=== PATIENT | female | born 1990 | race Caucasian/White ===

== ENCOUNTER 2016-06-07 04:35 | Emergency (ER) | payer OTHER ==
[2016-06-07] MEDS ORDERED: IOPAMIDOL 300 (61%) 150 ML VIAL IV ONE (04:36)
[2016-06-07] MEDS ORDERED: MORPHINE SULFATE 4 MG/ML SYRINGE ONE ×2 (05:01→06:55)
[2016-06-07] MEDS ORDERED: ONDANSETRON 4 MG/2ML 2 ML VIAL ONE (05:01)
[2016-06-07 05:03] LABS: SPECIFIC GRAVITY 1.015 (1.001-1.030); URINE APPEARANCE HAZY; URINE BILIRUBIN NEGATIVE (NEGATIVE); URINE BLOOD 3+ (NEGATIVE); URINE COLOR LIGHT YELLOW; URINE GLUCOSE (UA) NEGATIVE (NEGATIVE); URINE LEUKOCYTE ESTERASE TRACE (NEGATIVE); URINE NITRITE NEGATIVE (NEGATIVE); URINE PROTEIN 1+ (NEGATIVE); URINE UROBILINOGEN NORMAL (0-1 mg/dl)
[2016-06-07 05:07] LABS: HCG,QUALITATIVE URINE NEGATIVE
[2016-06-07 05:12] LABS: URINE WBC 15-20 /hpf
[2016-06-07 05:13] LABS: URINE BACTERIA RARE
[2016-06-07] MEDS ORDERED: CEFTRIAXONE 1 GRAM DUPLEX 50 ML IV ONE (05:21)
[2016-06-07 05:25] LABS: ABSOLUTE NEUTROPHIL COUNT 9.6 K/mm3 (1.8-7.7); BASO # 0.1 K/mm3 (0.0-0.2); BASO % 0.6 % (0.2-1.0); EOS # 0.3 (0.0-0.5); EOS % 1.9 % (0.9-2.9); HEMATOCRIT 41.3 % (37.0-47.0); IMM NEUT # 0.1 K/mm3 (0-0.2); IMM NEUT% 0.4 % (0-1); LYMPH % 20.9 % (15-45); MEAN CORPUSCULAR HEMOGLOBIN 33.9 pg (27.0-31.0); MEAN CORPUSCULAR HGB CONC 33.9 g/dl (33.0-37.0); MEAN PLATELET VOLUME 9.3 fl (7.4-10.4); MONO # 1.3 (0.0-0.8); MONO % 9.2 % (4-12); PLATELET COUNT 282 K/mm3 (130-400); RED CELL DISTRIBUTION WIDTH 12.5 % (11.5-14.5)
[2016-06-07 05:40] LABS: ALB/GLOB RATIO 1.3 (>1.0); ALBUMIN 3.6 gm/dL (3.5-5.7); CALCIUM 9.3 mg/dL (8.6-10.3)
[2016-06-07] MEDS ORDERED: SODIUM CHLORIDE 0.9% 1,000 ML ONE (06:05)
--- NOTE | 2016-06-07 08:21 | US ---
RENAL LTD/AORTA/BLADDER, ABDOMINAL-LIMITED COMPARISON: CT abdomen and pelvis with contrast 01/07/2016 HISTORY: Right flank pain. History of voiding issues as a child. Evaluate right kidney and the appendix. FINDINGS: Area scanned: Right lower quadrant of the abdomen. Appendix: Not visualized.. Free fluid: None. Secondary signs of appendicitis: No fecalith, pericecal fluid, or increased pericecal echogenicity. Lymphadenopathy: None. IMPRESSION: 1. Nonvisualization the appendix. Acute appendicitis cannot be totally excluded. No secondary findings. FINDINGS: Right kidney: Normal size, 10.5 x 4.1 x 5.0 cm. Normal cortical thickness 6.9 mm. Normal resistive index 0.64. No stone, hydronephrosis, mass, or cyst. Ureter: Right ureteral jet visualized. Urinary bladder: Prevoid volume 47 mL. Patient unable to void. IMPRESSION: Normal right kidney, right ureter, and urinary bladder. Preliminary report by [employer] radiologist Keyana Velazquez M.D. 06/07/2016 at 06:40
--- NOTE | 2016-06-07 08:27 | CT ---
ABD/PELVIS W/ CON COMPARISON: CT abdomen and pelvis with contrast 01/07/2016 HISTORY: Right lower quadrant pain. Technique: Intravenous injection 125 mL Isovue 300. Using a [employer] Aquilion [address] scanner, images were obtained from the diaphragm to the floor the pelvis. An automated dose reduction technique was used to minimize patient radiation dose. Dose information: CTDIvol (mGy): 8.20 DLP(mGycm): 387.30 FINDINGS: Lung bases: Normal. Inferior mediastinum and heart: Normal. Liver: 11 mm cyst in the right lobe. 12 mm cyst in the caudate lobe. Gallbladder:Normal. Bile ducts: Normal. Pancreas: Normal. Spleen: Normal. Adrenal glands: Normal. Kidneys: Normal. Ureters: Normal Urinary bladder: Normal. Uterus and adnexa: Normal. Blood vessels: Normal Lymph nodes: Normal Stomach: Normal Duodenum: Normal Small intestine: Normal Appendix: Normal Colon: Normal Abdominal wall and supporting musculature: Normal Bones: Normal IMPRESSION: 1. Normal appendix. Normal terminal ileum. Normal adnexa. Normal right kidney, ureter, and bladder. 2. Incidentally noted 2 simple cysts in the liver. 3. 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 The report was sent to the emergency department [employer] electronic medical record system 06/07/2016 at 08:28.
[2016-06-07] MEDS ORDERED: PHENAZOPYRIDINE HCL 200 MG TABLET ONE (08:42)
== END 2016-06-07 08:49 | disposition home or self-care (01) ==
LOC: ED 04:35
DX: N39.0 Urinary tract infection, site not specified (principal); R31.9 Hematuria, unspecified
CPT/HCPCS: 83690; 81025; 85025; 87086; 80053; 81001; 74177; 76775; 76705; 96375 ×2; 96376; 99284 ×2; 96361; 96365; J2270 ×2; A9270; J2405; J7030; Q9967; J0696